=== PATIENT | female | born 1965 | race African-American/Black ===

== ENCOUNTER 2020-03-19 10:03 | Observation (INO) | payer MEDICARE, MEDICAID ==
[~2020-03-19] VITALS: Ht 160 cm; Wt 95.7 kg
[2020-03-19] VITALS (7 sets, daily range): BP systolic 104–151; BP diastolic 58–79; BMI 38.7
[~2020-03-19 10:03] MED LIST: AMBIEN10 MG PO; BUSPAR5 MG PO; DESERYL100 MG PO; DILANTIN100 MG PO; GLUCOPHAGE500 MG PO; HALDOL5 MG PO; IBUPROFEN600 MG PO; KLOR-CON 1010 MEQ PO; LASIX20 MG PO; LISINOPRIL10 MG PO; LYRICA75 MG PO; PRILOSEC20 MG PO; PROZAC20 MG PO; TOPIRAGEN100 MG PO; TRIAMTERENE-HCT1 TA1 PO
[2020-03-19 10:32] LABS: BASOPHILS 0.8 % (0-2); EOSINOPHILS 2.2 % (0-7); HEMATOCRIT 44.8 % (36.0-48.0); HEMOGLOBIN 14.8 g/dL (12-16); IMMATURE GRANULOCYTES 0.4 % (0-5); LYMPHOCYTES 33.3 % (15-50); MCV 87.8 fL (80.0-100.0); MEAN PLATELET VOLUME 9.1 fL (7.4-10.4); MONOCYTES 6.7 % (2-11); NEUTROPHILS 56.6 % (40-80); PLATELET COUNT 282 10x3/uL (130-400); RDW 13.4 % (11.5-14.5); WBC 5.1 10x3/uL (4.8-10.8)
[2020-03-19 10:43] LABS: APTT 29.8 SECONDS (22.8-39.4); INR 0.89 (0.85-1.17)
[2020-03-19 10:44] LABS: CALC OSMOLALITY 276 mosm/kg (275-300); CALCIUM 8.6 mg/dL (8.5-10.1); CARBON DIOXIDE 20.5 mmol/L (21.0-32.0); CHLORIDE - SERUM 106 mmol/L (98-107); GLUCOSE 108 mg/dL (74-106); POTASSIUM - SERUM 3.7 mmol/L (3.5-5.1); SODIUM 138 mmol/L (136-145); UREA NITROGEN 13 mg/dL (7-18); eGFR NON AFRICAN AMERICAN 61 mL/min (90-120)
--- NOTE | 2020-03-19 10:45 | NUR ---
UPPER AIRWAY COURSE RATTLE NOTED. ORAL SUCTIONING WITH JOSELO. COUGH INDUCED. AIRWAY WITH SOME CLEARING NOTED. AIRWAY IMPROVED.
[2020-03-19 11:01] LABS: ALBUMIN 3.5 g/dL (3.4-5.0); ALKALINE PHOSPHATASE 84 U/L (30-120); ALT (SGPT) 24 U/L (10-68); BILIRUBIN - TOTAL 0.37 mg/dL (0.2-1.3); CKMB 0.4 U/L (0.0-3.6); CREATINE KINASE 89 UL (21-215); MAGNESIUM - SERUM 1.9 mg/dL (1.8-2.4); PRO BNP 148 pg/mL (0-125); PROTEIN - SERUM 7.6 g/dL (6.4-8.2); TROPONIN-I < 0.017 ng/mL (0.000-0.060)
--- NOTE | 2020-03-19 11:24 | NUR ---
RESPIRATORY CALLED FOR ABGS
--- NOTE | 2020-03-19 11:35 | NUR ---
PARTS COUNTER SPECIALIST IS IN THE ROOM
[2020-03-19 16:55] LABS: CKMB 0.2 U/L (0.0-3.6); CREATINE KINASE 79 UL (21-215)
[2020-03-19 16:56] LABS: TROPONIN-I < 0.017 ng/mL (0.000-0.060)
--- NOTE | 2020-03-19 19:49 | NUR ---
RECEVIED BEDSIDE REPORT. PATIENT IS ALERT AND ORIENTED, RESTING COMFORTABLY IN BED. RESPIRATIONS ARE EVEN AND UNLABORED. NO S/S OF DISTRESS. NO C/O PAIN. NEEDS MET. CALL LIGHT WITHIN REACH. WILL CPOC.
[2020-03-19 23:39] LABS: CKMB 0.5 U/L (0.0-3.6); CREATINE KINASE 74 UL (21-215); TROPONIN-I < 0.017 ng/mL (0.000-0.060)
[2020-03-20] VITALS: BP 104/65
[2020-03-20 04:00] VITALS: BP 134/81
[2020-03-20 05:18] LABS: BASOPHILS 0 % (0-2); EOSINOPHILS 0 % (0-7); HEMATOCRIT 45.9 % (36.0-48.0); HEMOGLOBIN 14.9 g/dL (12-16); IMMATURE GRANULOCYTES 0.1 % (0-5); LYMPHOCYTES 10.8 % (15-50); MCH 28.3 pg (26.0-34.0); MCHC 32.5 g/dL (31.0-37.0); MCV 87.3 fL (80.0-100.0); MEAN PLATELET VOLUME 9.5 fL (7.4-10.4); MONOCYTES 1.4 % (2-11); NEUTROPHILS 87.7 % (40-80); PLATELET COUNT 337 10x3/uL (130-400); RBC 5.26 10x6/uL (4.00-5.40); RDW 13.4 % (11.5-14.5)
[2020-03-20 05:45] LABS: WBC 8.7 10x3/uL (4.8-10.8)
[2020-03-20 05:56] LABS: ALBUMIN 3.3 g/dL (3.4-5.0); ALKALINE PHOSPHATASE 86 U/L (30-120); ALT (SGPT) 24 U/L (10-68); BILIRUBIN - TOTAL 0.22 mg/dL (0.2-1.3); CALCIUM 8.7 mg/dL (8.5-10.1); CARBON DIOXIDE 22.8 mmol/L (21.0-32.0); CHLORIDE - SERUM 106 mmol/L (98-107); CKMB 0.5 U/L (0.0-3.6); CREATINE KINASE 71 UL (21-215); GLUCOSE 139 mg/dL (74-106); PHOSPHOROUS 3.3 mg/dL (2.5-4.9); POTASSIUM - SERUM 4.1 mmol/L (3.5-5.1); PROTEIN - SERUM 7.5 g/dL (6.4-8.2); SODIUM 140 mmol/L (136-145); eGFR NON AFRICAN AMERICAN 61 mL/min (90-120)
[2020-03-20 06:04] LABS: CALC OSMOLALITY 282 mosm/kg (275-300); TROPONIN-I < 0.017 ng/mL (0.000-0.060); UREA NITROGEN 19 mg/dL (7-18)
[2020-03-20 11:25] VITALS: BP 131/71
[2020-03-20 12:58] VITALS: Ht 160 cm; Wt 95.7 kg
[2020-03-20 12:58] LABS: CKMB 0.4 U/L (0.0-3.6); CREATINE KINASE 58 UL (21-215); TROPONIN-I < 0.017 ng/mL (0.000-0.060)
--- NOTE | 2020-03-20 19:46 | NUR ---
RECEIVED BEDSIDE REPORT. PATIENT IS ALERT AND ORIENTED, RESTING COMFORTABLY IN BED. RESPIRATIONS ARE EVEN AND UNLABORED. NO S/S OF DISTRESS. NO C/O PAIN. CALLLIGHT WITHIN REACH. WILL CPOC.
[2020-03-20 20:00] VITALS: BP 127/54
[2020-03-21 06:18] LABS: BASOPHILS 0.1 % (0-2); EOSINOPHILS 0 % (0-7); HEMATOCRIT 43.3 % (36.0-48.0); HEMOGLOBIN 14.1 g/dL (12-16); IMMATURE GRANULOCYTES 0.3 % (0-5); LYMPHOCYTES 11.8 % (15-50); MCH 28.5 pg (26.0-34.0); MCHC 32.6 g/dL (31.0-37.0); MCV 87.5 fL (80.0-100.0); MEAN PLATELET VOLUME 10.1 fL (7.4-10.4); MONOCYTES 5.2 % (2-11); NEUTROPHILS 82.6 % (40-80); PLATELET COUNT 319 10x3/uL (130-400); RBC 4.95 10x6/uL (4.00-5.40); RDW 13.7 % (11.5-14.5)
[2020-03-21 06:54] LABS: ANION GAP 16.5 mmol/L (8-16); CALCIUM 8.7 mg/dL (8.5-10.1); CARBON DIOXIDE 18.6 mmol/L (21.0-32.0); MAGNESIUM - SERUM 2.1 mg/dL (1.8-2.4); POTASSIUM - SERUM 4.1 mmol/L (3.5-5.1)
--- NOTE | 2020-03-21 07:18 | NUR ---
PT COME OUT OF THE ROOM CRYING STATING THAT SHE WAS SORRY AND THAT SHE REGRETS WHAT SHE SAID. REASSURED PT THAT EVERYTHING WAS OKAY AND I WAS SIMPLY WATCHING OUT FOR HER SAFETY. SHE STATED THAT SHE IS SORRY AND WISHES I TAKE CARE OF HER TODAY.
[2020-03-21 08:00] VITALS: BP 119/78
--- NOTE | 2020-03-21 12:20 | NUR ---
PT DISCHARGED HOME VIA WHEELCHAIR. PT REQUESTED TO BE LEFT AT THE MAIN ENTRANCE AND THAT SHE WOULD CALL A TAXI. ASKED THE PT IF I COULD CALL A FAMILY MEMBER OR FRIEND BUT MY ATTEMPT WAS DENIED. PIV REMOVED WITH CATHETER TIP FULLY INTACT. TELEMETRY REMOVED AND RETURNED.
--- NOTE | 2020-03-25 11:44 | EC ---
PATIENT:POOL CANO DATE OF SERVICE: 03/19/20 SEX: F MEDICAL RECORD: [id number] DATE OF : 67 LOCATION:D.M2 D.211 AGE OF PATIENT: 54 ADMISSION DATE: 03/19/20 REFERRING PHYSICIAN: INTERPRETING PHYSICIAN: DEYANIRA HOUSTON MD ECHOCARDIOGRAM REPORT ECHO CHARGES 4 ECHO COMPLETE Date: 03/20/20 CLINICAL DIAGNOSIS: HTN ECHOCARDIOGRAPHIC MEASUREMENTS (adult normal given) AC root (d.<3.7cm) 2.6 cm LV Septum d (<1.2 cm> 0.7 cm Valve Excursion 1.9 cm LV Septum (systole) 1.2 cm Left Atria (s.<4.0cm> 3.6 cm LVPW d(<1.2cm) 1.2 cm RV (d.<2.3cm) 3.3 cm LVPW (sytole) 1.3 cm LV diastole(<5.6CM) 5.4 cm MV E-F(>70mm/sec) cm LV systole 4.0 cm LVOT Diameter 1.6 cm MV exc.(>10mm) cm Est.ejection fraction (50-75%) % DOPPLER: LVIT cm/sec A 66 cm/sec E 72 cm/sec LA cm/sec RVSP 16.8 mmHg LVOT 120 cm/sec AOP1/2T m/s Asc. Ao 145 cm/sec RVOT 52 cm/sec RA cm/sec PA 79 cm/sec AV Gradient Peak 8.4 mmHg AV Mean 3.5 mmHg AV Area 1.8 cm MV Gradient Peak 4.3 mmHg MV Mean 1.6 mmHg MV Area cm COMMENTS: Drafter Seismograph: Clark BILLINGSLEY Special Services Director: 3 Dr. [place] TAPE# PACS Pericardial Effusion N DATE OF SERVICE: Adequate 2D, color-flow imaging, spectral Doppler, and M-Mode No LVH. LV internal dimension is normal. Wall motion is normal. EF is greater than or equal to 55%. Aortic valve is tricuspid. No evidence of stenosis by Doppler interrogation. Left atrium normal at 3.6 cm. Mitral valve shows no prolapse. Trace MR. Right-sided chamber is grossly normal. Trace TR. TRANSINT:[id number] Voice Confirmation ID: [id number] DOCUMENT ID: [id number] ECHOCARDIOGRAM REPORT [id number] JEROME,POOL HOUSTON,DEYANIRA Benitez MD at 1144 CC: [id number] DICTATION DATE: 03/21/20 1528 FILM SOUND ENGINEER: 03/22/20 0117 DIS IN 03/21/20 [facility] [address] [place] [address]
== END 2020-03-21 12:23 | disposition home or self-care (01) ==
LOC: D.ER 10:03 → D.M2 13:16 → OBSVTIME 13:16 → D.M2 13:16
PROVIDERS: Family Medicine; ADMIT Family Medicine; ATTEND Family Medicine
DX: R07.9 Chest pain, unspecified (principal); J44.1 Chronic obstructive pulmonary disease with (acute) exacerbation; E11.9 Type 2 diabetes mellitus without complications; I10 Essential (primary) hypertension; E78.5 Hyperlipidemia, unspecified; R06.02 Shortness of breath; Z86.73 Personal history of transient ischemic attack (TIA), and cerebral infarction without residual deficits; I25.10 Atherosclerotic heart disease of native coronary artery without angina pectoris; Z68.37 Body mass index [BMI] 37.0-37.9, adult